=== PATIENT | male | born 1985 | race Hispanic/Latino ===

== ENCOUNTER 2021-09-01 20:24 | Inpatient (IN) | payer SELFPAY ==
[2021-09-01] MEDS ORDERED: Albuterol 200 PUFF (6.7GM INHALER) ONE (22:03)
[2021-09-01] MEDS ORDERED: Dexamethasone 10 MG/ML VIAL ONE (23:23)
[2021-09-01 23:25] LABS: #Lymphocytes 1.4 thou/uL (1.20-3.40); #Monocytes 0.6 thou/uL (0.11-0.59); #Neutrophils 6.3 thou/uL (1.40-6.50); %Basophils 0.3 % (0.0-1.0); %Eosinophils 0.4 % (0.0-10.0); %Lymphocytes 16.4 % (21.0-51.0); %Monocytes 6.8 % (0.0-10.0); %Neutrophils 76.2 % (42.0-75.0); Hemoglobin 14.8 g/dL (14.0-18.0); Mean Corpuscular HGB CONC 35.1 g/dL (32.0-36.0); Mean Corpuscular Hemoglobin 32.7 pg (27.0-31.0); Mean Corpuscular Volume 93.3 fL (78.0-98.0); Mean Platelet Volume 7.2 fL (7.4-10.4); Platelet Count 345 thou/uL (130-400); RBC Distribution Width 11.8 % (11.5-14.5); Red Blood Cell (RBC) Count 4.53 mill/uL (4.70-6.10); White Blood Cell (WBC) Count 8.3 thou/uL (4.8-10.8)
[2021-09-01 23:44] LABS: ALT (SGPT) 50 U/L (8-55); AST (SGOT) 36 U/L (5-34); Albumin 3.6 g/dL (3.5-5.0); Alkaline Phosphatase 69 U/L (40-110); Anion Gap 15 mmol/L (10-20); BUN (Urea Nitrogen) 14 mg/dL (8.9-20.6); Bilirubin, Total 0.6 mg/dL (0.2-1.2); Calc. Creatinine Clearance 0 mL/min (70-130); Calcium 8.8 mg/dL (7.8-10.44); Carbon Dioxide 22 mmol/L (22-29); Chloride 103 mmol/L (98-107); Globulin 3.8 g/dL (2.4-3.5); Glucose 130 mg/dL (70-105); Potassium 3.5 mmol/L (3.5-5.1); Protein, Total 7.4 g/dL (6.0-8.3); Sodium 136 mmol/L (136-145)
[2021-09-02] MEDS ORDERED: Ondansetron PF 4 MG/2 ML Vial IVP PRN (02:15)
[2021-09-02] MEDS ORDERED: Ondansetron ODT 4 MG TAB SL PRN (02:15)
[2021-09-02] MEDS ORDERED: Acetaminophen 325 MG TAB PO PRN (02:15)
[2021-09-02 02:33] VITALS: BMI 26.0
[2021-09-02] MEDS ORDERED: Albuterol Sulfate 2.5 mg/3 ml Neb NEB PRN (09:34)
[2021-09-02] MEDS ORDERED: Electrolyte Replacement Protocol 1 EACH FS SCH (09:45)
[2021-09-02] MEDS ORDERED: Potassium Chloride 20 MEQ TAB PO SCH (10:00)
[2021-09-02] MEDS: Dexamethasone 4 mg/ml Vial SLOW IVP SCH ×2 (10:39→21:33)
[2021-09-02] MEDS: Benzonatate 100 MG CAP PO PRN ×2 (10:39→21:34)
[2021-09-02 11:05] LABS: CRP (Inflammatory) 5.49 mg/dL (= or < 0.5); Magnesium 2.2 mg/dL (1.6-2.6)
[2021-09-02] MEDS ORDERED: Albuterol 200 PUFF (6.7GM INHALER) INH PRN (13:45)
[2021-09-03 06:52] LABS: #Monocytes 0.7 thou/uL (0.11-0.59); #Neutrophils 6.3 thou/uL (1.40-6.50); %Lymphocytes 12.1 % (21.0-51.0); %Monocytes 8.5 % (0.0-10.0); %Neutrophils 79.3 % (42.0-75.0); Mean Corpuscular HGB CONC 32.4 g/dL (32.0-36.0); Mean Corpuscular Hemoglobin 30.5 pg (27.0-31.0); Mean Corpuscular Volume 94.2 fL (78.0-98.0); Mean Platelet Volume 7.3 fL (7.4-10.4); Platelet Count 484 thou/uL (130-400); RBC Distribution Width 11.8 % (11.5-14.5); Red Blood Cell (RBC) Count 4.92 mill/uL (4.70-6.10)
[2021-09-03 07:07] LABS: Anion Gap 15 mmol/L (10-20); BUN (Urea Nitrogen) 17 mg/dL (8.9-20.6); Calc. Creatinine Clearance 132 mL/min (70-130); Calcium 9.4 mg/dL (7.8-10.44); Carbon Dioxide 23 mmol/L (22-29); Chloride 102 mmol/L (98-107); Glucose 195 mg/dL (70-105); Sodium 136 mmol/L (136-145)
[2021-09-03] MEDS: Dexamethasone 4 mg/ml Vial SLOW IVP SCH (09:09)
[2021-09-03] MEDS: Zinc Sulfate 220 MG CAP PO SCH (09:09)
[2021-09-03] MEDS: Ascorbic Acid 500 mg Chewable Tablet PO SCH (09:09)
[2021-09-03] MEDS: Enoxaparin Sodium 40 MG/0.4 ML SYRINGE SC SCH (09:10)
[2021-09-03] MEDS: Benzonatate 100 MG CAP PO PRN ×2 (09:11→20:20)
[2021-09-03] MEDS ORDERED: cefTRIAXone\\ROCEPHIN 1 GM in Sodium Chloride 0.9% 100 ML IVPB SCH (18:00)
[2021-09-03] MEDS ORDERED: Azithromycin 500 MG in Sodium Chloride 0.9% 250 ML 250 ML IVPB SCH (20:00)
[2021-09-04 05:57] LABS: #Basophils 0.1 thou/uL (0.0-0.2); #Eosinphils 0.1 thou/uL (0.0-0.7); #Monocytes 0.6 thou/uL (0.11-0.59); #Neutrophils 5.6 thou/uL (1.40-6.50); %Basophils 0.8 % (0.0-1.0); %Eosinophils 0.9 % (0.0-10.0); %Lymphocytes 23.3 % (21.0-51.0); %Monocytes 7.6 % (0.0-10.0); %Neutrophils 67.3 % (42.0-75.0); Mean Corpuscular HGB CONC 34.2 g/dL (32.0-36.0); Mean Corpuscular Hemoglobin 31.8 pg (27.0-31.0); Mean Platelet Volume 7.2 fL (7.4-10.4); Platelet Count 521 thou/uL (130-400); RBC Distribution Width 11.8 % (11.5-14.5); White Blood Cell (WBC) Count 8.4 thou/uL (4.8-10.8)
[2021-09-04 06:08] LABS: Hemoglobin A1c 6.4 % (4.0-6.0)
[2021-09-04 06:15] LABS: Anion Gap 12 mmol/L (10-20); BUN (Urea Nitrogen) 18 mg/dL (8.9-20.6); Calc. Creatinine Clearance 126 mL/min (70-130); Calcium 9.1 mg/dL (7.8-10.44); Carbon Dioxide 25 mmol/L (22-29); Chloride 104 mmol/L (98-107); Glucose 166 mg/dL (70-105); Potassium 3.9 mmol/L (3.5-5.1); Sodium 137 mmol/L (136-145)
[2021-09-04 07:19] VITALS: BP 131/88; TEMP 98.3
[2021-09-04] MEDS: Enoxaparin Sodium 40 MG/0.4 ML SYRINGE SC SCH (08:41)
[2021-09-04] MEDS: Ascorbic Acid 500 mg Chewable Tablet PO SCH (08:41)
[2021-09-04] MEDS: Zinc Sulfate 220 MG CAP PO SCH (08:41)
== END 2021-09-04 13:10 | disposition home or self-care (01) | DRG 177 ==
LOC: ERS 20:24 → T4-B 09-02 00:01 → OBSVTOIN 09-02 16:42
PROVIDERS: ADMIT Student in an Organized Health Care Education/Training Program; ATTEND Internal Medicine
PROC: 8E0ZXY6 Isolation (ICD-10-PCS; principal; 2021-09-02)
PROC: 3E0333Z Introduction of Anti-inflammatory into Peripheral Vein, Percutaneous Approach (ICD-10-PCS; 2021-09-02)
DX: U07.1 COVID-19 (principal); J12.82 Pneumonia due to coronavirus disease 2019; R73.9 Hyperglycemia, unspecified; R09.02 Hypoxemia; T38.0X5A Adverse effect of glucocorticoids and synthetic analogues, initial encounter; Z72.89 Other problems related to lifestyle
CPT/HCPCS: 36415; 71046; 80048; 80053; 83036; 83735; 85025; 86140; 96374; 96376; G0378; J0456; J0696; J1100; J1650; J3490; J7050